=== PATIENT | female | born 1970 ===

== ENCOUNTER 2017-08-03 15:50 | Emergency (ER) | payer OTHER ==
[2017-08-03 16:50] VITALS: RESP 18; TEMP 98.1; O2SAT 98
[2017-08-03 16:54] VITALS: BMI 32.9
--- NOTE | 2017-08-03 16:54 | ED PDOC ---
Arrival/HPI - General Historian: Patient <Opal Fitzgerald A - Last Filed: 08/03/17 20:30> <Aaron Christian - Last Filed: 08/11/17 20:33> - General Time Seen by Provider: 08/03/17 16:30 - History of Present Illness Narrative History of Present Illness (Text): 08/03/17 16:49 47yo female with no history of Varicosity who present with complaint of draining left ankle ulcer. 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 States she usually takes care of it herself. States she came to ED today because of the worsening pain with purulent discharge from the wound x 2days. She denies fever, chills, nausea, vomiting, calf pain, any other complaint. (Opal Fitzgerald A) Past Medical History - Provider Review Nursing Documentation Reviewed: Yes <Opal Fitzgerald Tom - Last Filed: 08/03/17 20:30> Family/Social History - Physician Review Nursing Documentation Reviewed: Yes Family/Social History: Unknown Family HX <Opal Fitzgerald A - Last Filed: 08/03/17 20:30> Allergies/Home Meds <Opal Fitzgerald A - Last Filed: 08/03/17 20:30> <Aaron Christian - Last Filed: 08/11/17 20:33> Allergies/Adverse Reactions: Allergies No Known Allergies Allergy (Verified 08/03/17 16:50) Review of Systems - Physician Review All systems were reviewed & negative as marked: Yes - Review of Systems Constitutional: Normal Eyes: Normal ENT: Normal Respiratory: Normal Cardiovascular: Normal Gastrointestinal: Normal Genitourinary Female: Normal Musculoskeletal: Arthralgias (Left ankle) Skin: Cellulitis Neurological: Normal Endocrine: Normal Hemo/Lymphatic: Normal Psychiatric: Normal <LiaOpal A - Last Filed: 08/03/17 20:30> Physical Exam Vital Signs Reviewed: Yes Temperature: Afebrile Blood Pressure: Normal Pulse: Regular Respiratory Rate: Normal Appearance: Positive for: Well-Appearing, Non-Toxic, Comfortable Pain Distress: None Mental Status: Positive for: Alert and Oriented X 3 - Systems Exam Head: Present: Atraumatic, Normocephalic Pupils: Present: PERRL Extroacular Muscles: Present: EOMI Conjunctiva: Present: Normal Mouth: Present: Moist Mucous Membranes Neck: Present: Normal Range of Motion Respiratory/Chest: Present: Clear to Auscultation, Good Air Exchange. No: Respiratory Distress, Accessory Muscle Use Cardiovascular: Present: Regular Rate and Rhythm, Normal S1, S2. No: Murmurs Abdomen: No: Tenderness, Distention, Peritoneal Signs Back: Present: Normal Inspection Upper Extremity: Present: Normal Inspection. No: Cyanosis, Edema Lower Extremity: Present: NORMAL PULSES, Normal ROM, Other (Open wound with purulent discharge noted on medial left malleolus. No erythema. No warmth.). No : Edema, CALF TENDERNESS Neurological: Present: GCS=15, CN II-XII Intact, Speech Normal Skin: Present: Warm, Dry, Normal Color. No: Rashes Psychiatric: Present: Alert, Oriented x 3, Normal Insight, Normal Concentration <Opal Fitzgerald - Last Filed: 08/03/17 20:30> Vital Signs Temp Pulse Resp BP Pulse Ox 08/03/17 18:55 70 18 159/94 H 98 08/03/17 16:48 98.1 F 62 18 189/92 H 98 Medical Decision Making <Opal Fitzgerald - Last Filed: 08/03/17 20:30> <Aaron Christian - Last Filed: 08/11/17 20:33> ED Course and Treatment: 08/03/17 20:30 PT was hemodynamically stable. Her lab was unremarkable. Left ankle xray - No osteomylitis PT was treated with Rocephin in ED and DC home with Keflex and bactrim DS. Referred to the clinic (Opal Fitzgerald) - Lab Interpretations Microbiology Results: Microbiology Results 08/03/17 20:38 Blood-Venous Blood Culture - Final NO GROWTH AFTER 5 DAYS 08/03/17 20:38 Blood-Venous Gram Stain - Final TEST NOT PERFORMED 08/03/17 17:40 Blood-Venous Blood Culture - Final NO GROWTH AFTER 5 DAYS 08/03/17 17:40 Blood-Venous Gram Stain - Final TEST NOT PERFORMED 08/03/17 17:40 Ankle - Left Gram Stain - Final 08/03/17 17:40 Ankle - Left Wound Culture - Final Jewels [facility] Lab Results: 08/03/17 17:40 08/03/17 17:40 Lab Results 08/03/17 17:40: Sodium 141, Potassium 3.9, Chloride 107, Carbon Dioxide 24, Anion Gap 15, BUN 13, Creatinine 0.5 L, Est GFR ( Amer) > 60, Est GFR ( Non-Af Amer) > 60, Random Glucose 81, Calcium 8.9, Total Bilirubin 0.4, AST 23, ALT 18, Alkaline Phosphatase 112, Total Protein 7.3, Albumin 3.8, Globulin 3.5, Albumin/Globulin Ratio 1.1 08/03/17 17:40: PT 11.5, INR 1.01, APTT 35.1 08/03/17 17:40: WBC 10.1, RBC 4.83, Hgb 13.2, Hct 39.5, MCV 81.8, MCH 27.3, MCHC 33.4, RDW 14.0, Plt Count 262, MPV 10.9, Gran % 56.3, Lymph % (Auto) 34.3, Winn % (Auto) 6.6 H, Eos % (Auto) 2.5, Baso % (Auto) 0.3, Gran # 5.70, Lymph # ( Auto) 3.5 H, Winn # (Auto) 0.7 H, Eos # (Auto) 0.3, Baso # (Auto) 0.03 - RAD Interpretation Radiology Orders: 08/03/17 16:58 ANKLE LEFT 3 VIEWS ROUTINE [RAD] Stat - Medication Orders Current Medication Orders: Discontinued Medications Ceftriaxone Sodium (Rocephin 1 Gram Ivpb) 1 gm in 100 mls @ 200 mls/hr IVPB STAT STA PRN Reason: Protocol Stop: 08/03/17 18:43 Last Admin: 08/03/17 18:50 Dose: 200 mls/hr eMAR Start Stop Document 08/03/17 18:50 LOGAN (Rec: 08/03/17 18:51 LOGAN [id number]) Intravenous Solution Start Date 08/03/17 Start Time 18:51 End Date 08/03/17 End time 19:21 Total Infusion Time 30 Ketorolac Tromethamine (Toradol) 30 mg IVP STAT STA Stop: 08/03/17 18:40 Last Admin: 08/03/17 18:50 Dose: 30 mg MAR Pain Assessment Document 08/03/17 18:50 LOGAN (Rec: 08/03/17 18:50 LOGAN [id number]) Pain Reassessment Is this a pain reassessment? Yes Presence of Pain Presence of Pain Yes Pain Scale Used Pain Scale Used Numeric Location Left, Right or Bilateral Left Pain Location Body Site Ankle Description Description Constant Intensity of Pain at present 10 IVP Administration Document 08/03/17 18:50 LOGAN (Rec: 08/03/17 18:50 LOGAN [id number]) Charges for Administration # of IVP Administrations 1 - PA / COMMUNITY ENGAGEMENT REPRESENTATIVE / Resident Statement MD/DO has reviewed & agrees with the documentation as recorded. <Aaron Christian - Last Filed: 08/11/17 20:33> Disposition/Present on Arrival - Present on Arrival Any Indicators Present on Arrival: No History of DVT/PE: No History of Uncontrolled Diabetes: No Urinary Catheter: No History of Decub. Ulcer: No History Surgical Site Infection Following: None - Disposition Have Diagnosis and Disposition been Completed?: Yes Disposition Time: 18:40 Patient Plan: Discharge <Opal Fitzgerald - Last Filed: 08/03/17 20:30> <Aaron Christian - Last Filed: 08/11/17 20:33> - Disposition Diagnosis: Wound infection Disposition: HOME/ ROUTINE Condition: STABLE Discharge Instructions (ExitCare): Wound Infection Additional Instructions: Take medication and follow up with the clinic Return to ED for any new symptoms Prescriptions: Cephalexin [Keflex] 500 mg PO TID #30 capsule Sulfamethoxazole/Trimethoprim [Bactrim Ds Tablet] 1 each PO BID #20 tablet RX: traMADol [Ultram] 50 mg PO TID #10 tab Ref[facility] [[facility] - Follow up with primary [facility] [place] [Outside] - Follow up with primary Forms: [employer] (Irish)
[2017-08-03 18:08] LABS: BASO # 0.03 K/mm3 (0.0-2.0); BASO % 0.3 % (0.0-3.0); EOS # 0.3 (0.0-0.7); EOS % 2.5 % (1.5-5.0); GRAN # 5.7 (1.4-6.5); GRAN % 56.3 % (50.0-68.0); HEMOGLOBIN 13.2 g/dL (12.0-16.0); LYMPH # 3.5 (1.2-3.4); LYMPH % 34.3 % (22.0-35.0); MEAN CELL VOLUME 81.8 fl (80.0-105.0); MEAN CORPUSCULAR HEMOGLOBIN 27.3 pg (25.0-35.0); MEAN CORPUSCULAR HGB CONC 33.4 g/dl (31.0-37.0); MEAN PLATELET VOLUME 10.9 fl (7.0-11.0); MONO # 0.7 (0.1-0.6); MONO % 6.6 % (1.0-6.0); RBC 4.83 10^6/uL (3.5-6.1); WHITE BLOOD COUNT 10.1 10^3/ul (4.5-11.0)
[2017-08-03] MEDS ORDERED: cefTRIAXone 1 gm 1 GM/100 ML BAG IVPB STA (18:14)
[2017-08-03 18:18] LABS: INR 1.01 (0.93-1.08); PARTIAL THROMBOPLASTIN TIME 35.1 Seconds (25.1-36.5); PROTHROMBIN TIME 11.5 SECONDS (9.4-12.5)
[2017-08-03 18:23] LABS: ALB/GLOB RATIO 1.1 (1.1-1.8); ALBUMIN 3.8 g/dL (3.0-4.8); ALT/SGPT 18 U/L (7-56); AST/SGOT 23 U/L (14-36); BLOOD UREA NITROGEN 13 mg/dL (7-21); CALCIUM 8.9 mg/dL (8.4-10.5); GFR AFRICAN-AMERICAN > 60; GFR NON-AFRICAN AMERICAN > 60
--- NOTE | 2017-08-03 18:27 | RAD ---
PROCEDURE: Left Ankle Radiographs. HISTORY: ankle ulcer infection COMPARISON: None FINDINGS: BONES: Plantar and Achilles Tendon insertion calcaneal spurs. No evidence of osteomyelitis. JOINTS: Normal. No osteoarthritis. Ankle mortise maintained. Talar dome intact SOFT TISSUES: Soft tissue ulcer adjacent the medial aspect of the distal left tibia. OTHER FINDINGS: None. IMPRESSION: No evidence for acute osseous abnormality/osteomyelitis. Soft tissue ulceration noted
[2017-08-03 18:57] VITALS: BP 159/94; PULSE 70
== END 2017-08-03 19:26 | disposition home or self-care (01) ==
LOC: ED 15:50
DX: L08.9 Local infection of the skin and subcutaneous tissue, unspecified (principal)
CPT/HCPCS: 73610; 80053; 85025; 85610; 85730; 87040; 87070; 96365; 96375; 99283; J0696; J1885

== ENCOUNTER 2017-10-15 17:03 | Emergency (ER) | payer OTHER ==
[2017-10-15 17:18] VITALS: BMI 32.5
--- NOTE | 2017-10-15 17:47 | ED PDOC ---
Arrival/HPI - General Time Seen by Provider: 10/15/17 17:16 Historian: Patient - History of Present Illness Narrative History of Present Illness (Text): 10/15/17 17:39 47yo female with no past medical history present with complaint of right knee pain s/p trauma a week and half ago. states she slipped in her kitchen and fell hitting right knee on the floor. States she had an appointment today in the clinic and was referred to the Emergency department from there. States she did not take any medication for the pain. Denies head injury, LOC, focal weakness, nausea, vomiting, back pain, focal weakness, any other complaint. Past Medical History - Provider Review Nursing Documentation Reviewed: Yes - Cardiac Other/Comment: Varicose veins - Psychiatric Hx Substance Use: No Family/Social History - Physician Review Nursing Documentation Reviewed: Yes Family/Social History: Unknown Family HX Smoking Status: Heavy Smoker > 10 Cigarettes Daily Hx Alcohol Use: No Hx Substance Use: No Allergies/Home Meds Allergies/Adverse Reactions: Allergies No Known Allergies Allergy (Verified 08/03/17 16:50) Review of Systems - Physician Review All systems were reviewed & negative as marked: Yes - Review of Systems Constitutional: Normal Eyes: Normal ENT: Normal Respiratory: Normal Cardiovascular: Normal Gastrointestinal: Normal Genitourinary Female: Normal Musculoskeletal: Arthralgias (Right knee pain) Skin: Normal Neurological: Normal Endocrine: Normal Hemo/Lymphatic: Normal Psychiatric: Normal Physical Exam Vital Signs Reviewed: Yes Vital Signs Temp Pulse Resp BP Pulse Ox 10/15/17 18:22 98.2 F 60 17 156/64 H 98 Temperature: Afebrile Blood Pressure: Normal Pulse: Regular Respiratory Rate: Normal Appearance: Positive for: Well-Appearing, Non-Toxic, Comfortable Pain Distress: None Mental Status: Positive for: Alert and Oriented X 3 - Systems Exam Head: Present: Atraumatic, Normocephalic Pupils: Present: PERRL Extroacular Muscles: Present: EOMI Conjunctiva: Present: Normal Mouth: Present: Moist Mucous Membranes Neck: Present: Normal Range of Motion Respiratory/Chest: Present: Clear to Auscultation, Good Air Exchange. No: Respiratory Distress, Accessory Muscle Use Cardiovascular: Present: Regular Rate and Rhythm, Normal S1, S2. No: Murmurs Abdomen: No: Tenderness, Distention, Peritoneal Signs Back: Present: Normal Inspection Upper Extremity: Present: Normal Inspection. No: Cyanosis, Edema Lower Extremity: Present: NORMAL PULSES, Normal ROM, Tenderness (Right knee diffusely), Swelling (Mild suprapatellar swelling noted), Neurovascularly Intact. No: Edema, Deformity, Temperature Abnormalties Neurological: Present: GCS=15, CN II-XII Intact, Speech Normal Skin: Present: Warm, Dry, Normal Color. No: Rashes Psychiatric: Present: Alert, Oriented x 3, Normal Insight, Normal Concentration Medical Decision Making ED Course and Treatment: 10/15/17 18:45 PT in Emergency department for stated history. right knee xray - No acute fracture. Joint narrowing noted. Knee immobilzer placed. Result was DW the pt. She was referred to ortho - RAD Interpretation Radiology Orders: 10/15/17 17:18 KNEE W PATELLA RIGHT 3 VIEW [RAD] Stat - Medication Orders Current Medication Orders: Discontinued Medications Ketorolac Tromethamine (Toradol) 60 mg IM STAT STA Stop: 10/15/17 17:19 Disposition/Present on Arrival - Present on Arrival Any Indicators Present on Arrival: No History of DVT/PE: No History of Uncontrolled Diabetes: No Urinary Catheter: No History Surgical Site Infection Following: None - Disposition Have Diagnosis and Disposition been Completed?: Yes Diagnosis: Knee sprain Disposition: HOME/ ROUTINE Disposition Time: 18:50 Patient Plan: Discharge Patient Problems: Current Active Problems Problem Status Onset Knee sprain Acute Condition: STABLE Discharge Instructions (ExitCare): Knee Sprain (DC) Additional Instructions: Rest, Ice, Compress and elevate knee Follow up with orthopedist Return to Emergency department for any new or worsening symptoms Prescriptions: Naproxen [Naprosyn] 500 mg PO BID #20 tablet Referrals: Don Rodas DO [Staff Provider] - Follow up with primary
[2017-10-15 18:27] VITALS: BP 156/64; PULSE 60; RESP 17; TEMP 98.2; O2SAT 98
--- NOTE | 2017-10-16 08:14 | RAD ---
Date of service: 10/15/2017 PROCEDURE: Right Knee and patella Radiographs. HISTORY: knee pain COMPARISON: None. FINDINGS: BONES: Normal. No fracture. JOINTS: Normal. No osteoarthritis. JOINT EFFUSION: None. OTHER FINDINGS: None. IMPRESSION: Normal radiographs of the right knee.
== END 2017-10-15 19:22 | disposition home or self-care (01) ==
LOC: ED 17:03
DX: S83.91XA Sprain of unspecified site of right knee, initial encounter (principal); W01.0XXA Fall on same level from slipping, tripping and stumbling without subsequent striking against object, initial encounter; F17.210 Nicotine dependence, cigarettes, uncomplicated

== ENCOUNTER 2018-05-04 13:56 | Outpatient (CLI) | payer OTHER | END 2018-05-04 13:57 | disposition home or self-care (01) | LOC: RAD 13:56 | DX: R92.8 Other abnormal and inconclusive findings on diagnostic imaging of breast (principal) ==

== ENCOUNTER 2018-05-12 09:10 | Outpatient (CLI) | payer OTHER | END 2018-05-12 09:11 | disposition home or self-care (01) | LOC: RAD 09:10 ==